=== PATIENT | male | born 1995 | race Two or more races ===

== ENCOUNTER 2023-10-22 13:49 | Inpatient (IN) | payer MEDICARE, MEDICAID ==
[~2023-10-22] VITALS: Ht 175.3 cm; Wt 91.7 kg
[2023-10-22 03:26] VITALS: BP 183/106; PULSE 67; RESP 20; TEMP 97.8; O2SAT 100
[2023-10-22 14:25] LABS: Basophils # (auto) 0.1 10 ^3/uL (0-0.2); Basophils % (auto) 1.2 % (0.0-2.0); Eosinophils # (auto) 0.4 10 ^3/uL (0-0.8); Eosinophils % (auto) 3.5 % (0.0-7.0); Hemoglobin 11.7 g/dL (13.5-17.5); Lymphocytes # (auto) 1.4 10 ^3/uL (0.4-5.4); Mean Corpuscular Hemoglobin 30.9 pg (28.0-32.0); Mean Corpuscular Hgb Conc. 33.5 g/dL (32.0-36.0); Mean Corpuscular Volume 92.3 fL (80.0-100.0); Monocytes # (auto) 0.9 10 ^3/uL (0-1.3); Monocytes % (auto) 8.4 % (0.0-12.0); Neutrophils # (auto) 7.4 10 ^3/uL (1.6-8.6); Neutrophils % (auto) 72.9 % (37.0-80.0); Red Blood Cells 3.79 10^6/uL (4.5-5.90); White Blood Cell 10.2 10^3/uL (4.4-10.8)
[2023-10-22 14:41] LABS: INR 1.04 (0.9-1.15); Partial Thromboplastin Time 25.9 SEC (24.5-34.5)
[2023-10-22 14:47] LABS: Alanine Aminotransferase 18 U/L (7-40); Albumin 4.3 g/dL (3.2-4.8); Alkaline Phosphatase 84 U/L (46-116); Anion Gap 9 (5-15); Aspartate Aminotransferase 12 U/L (13-40); BUN/Creatinine Ratio 2.6 (10.0-20.0); Bilirubin, Total 0.4 mg/dL (0.2-1.0); Blood Urea Nitrogen 35 mg/dL (9-23); Calcium 9.1 mg/dL (8.5-10.1); Carbon Dioxide 25 mmol/L (20-30); Chloride 105 mmol/L (98-107); Glucose 94 mg/dL (74-106); Sodium 139 mmol/L (136-145); Total Protein 6.3 g/dL (5.7-8.2)
[2023-10-22 16:00] VITALS: PULSE 59; RESP 16; O2SAT 95
[2023-10-22] MEDS: PANTOPRAZOLE 80 MG in SODIUM CHL 0.9% 100 ML IV ONE (18:15)
[2023-10-22] MEDS: OCTREOTIDE ACETATE 500 MCG in SODIUM CHL 0.9% 99 ML IV SCH (18:15)
[2023-10-22] MEDS ORDERED: MYCO500T PO (18:45)
[2023-10-22] MEDS ORDERED: NIFE90TA75 PO (18:45)
[2023-10-22] MEDS ORDERED: LOSA-534 PO (18:45)
[2023-10-22] MEDS ORDERED: LABE200T33 PO (18:45)
[2023-10-22] MEDS ORDERED: CALC10TA PO (18:45)
[2023-10-22] MEDS ORDERED: FERR1TAB17 PO (18:45)
[2023-10-22 19:15] VITALS: PULSE 67; RESP 15; O2SAT 97
[2023-10-22] MEDS: PANTOPRAZOLE 40mg/50ML NS AE 50 ML IV ONE (19:15)
[2023-10-22] MEDS: hydrALAZINE HCL 20 MG/ML VL IV PRN (19:44)
[2023-10-22] MEDS: OCTREOTIDE ACETATE 100 MCG in SODIUM CHL 0.9% 50 ML IV ONE (19:55)
[2023-10-22] MEDS: LABETALOL HCL 200 MG TAB PO SCH ×2 (22:13→23:09)
[2023-10-22] MEDS: LOSARTAN POTASSIUM 50 MG TAB PO SCH (22:13)
[2023-10-23] VITALS (11 sets, daily range): BP systolic 127–195; BP diastolic 74–115; PULSE 63–82; RESP 14–20; TEMP 97.8–99.3; O2SAT 98–100
[2023-10-23] MEDS: OCTREOTIDE ACETATE 500 MCG/ML VL ONE (03:06)
[2023-10-23] MEDS ORDERED: ISOS10TA2 PO (04:27)
[2023-10-23 06:08] LABS: Basophils # (auto) 0.2 10 ^3/uL (0-0.2); Basophils % (auto) 2.1 % (0.0-2.0); Eosinophils # (auto) 0.5 10 ^3/uL (0-0.8); Hematocrit 33.8 % (41.0-53.0); Hemoglobin 11.2 g/dL (13.5-17.5); Lymphocytes % (auto) 26.7 % (10.0-50.0); Mean Corpuscular Hemoglobin 30.6 pg (28.0-32.0); Mean Corpuscular Hgb Conc. 33.3 g/dL (32.0-36.0); Mean Corpuscular Volume 91.9 fL (80.0-100.0); Monocytes # (auto) 0.7 10 ^3/uL (0-1.3); Monocytes % (auto) 9.2 % (0.0-12.0); Neutrophils # (auto) 4.1 10 ^3/uL (1.6-8.6); Nucleated Red Blood Cells % 0.1 %; Red Blood Cells 3.67 10^6/uL (4.5-5.90); Red Cell Distribution Width 14.1 % (11.8-14.3); White Blood Cell 7.5 10^3/uL (4.4-10.8)
[2023-10-23 06:33] LABS: Alanine Aminotransferase 17 U/L (7-40); Alkaline Phosphatase 72 U/L (46-116); Anion Gap 11 (5-15); BUN/Creatinine Ratio 2.2 (10.0-20.0); Blood Urea Nitrogen 34 mg/dL (9-23); Calcium 9.1 mg/dL (8.7-10.4); Carbon Dioxide 22 mmol/L (20-30); Chloride 104 mmol/L (98-107); Glucose 136 mg/dL (74-106); Potassium 4.3 mmol/L (3.5-5.1); Sodium 137 mmol/L (136-145)
[2023-10-23 06:35] LABS: Albumin 3.9 g/dL (3.2-4.8); Aspartate Aminotransferase 8 U/L (13-40); Bilirubin, Total 0.5 mg/dL (0.2-1.0); Total Protein 5.9 g/dL (5.7-8.2)
[2023-10-23] MEDS: NIFEdipine ER 30 MG TAB PO SCH (08:39)
[2023-10-23] MEDS: ISOSORBIDE DINITRATE 10 MG TAB PO SCH (11:14)
[2023-10-23 12:56] LABS: Hepatitis B Surface Antigen Negative (Negative)
[2023-10-23 13:17] LABS: Hepatitis A Ab IgM Negative; Hepatitis B Core IgM Negative
[2023-10-23] MEDS: levoFLOXacin 500MG 100 ML IV SCH (13:17)
[2023-10-23 13:18] LABS: Hepatitis C Antibody Negative (Negative)
[2023-10-23 16:46] LABS: Magnesium 2.1 mg/dL (1.6-2.6)
[2023-10-23 16:48] LABS: Phosphorus 6.4 mg/dL (2.4-5.1)
[2023-10-23] MEDS: FERRIC CITRATE PO SCH (18:00)
[2023-10-23] MEDS: [UNRECOGNIZED DRUG - OTHER] PO SCH (18:00)
[2023-10-23] MEDS: CALCIUM ACETATE 667 MG CAP PO SCH (18:00)
[2023-10-23] MEDS: metroNIDAZOLE 500MG/100ML 100 ML IV SCH (19:04)
[2023-10-23 19:48] LABS: Erythrocyte Sedimentation Rate 7 mm/hr (0-20)
[2023-10-23] MEDS: MYCOPHENOLATE 500 MG TAB PO SCH (22:04)
[2023-10-24 01:00] VITALS: BP 135/77; PULSE 87; RESP 17; TEMP 98.5; O2SAT 98
[2023-10-24 07:37] LABS: Basophils # (auto) 0.1 10 ^3/uL (0-0.2); Basophils % (auto) 1.7 % (0.0-2.0); Eosinophils # (auto) 0.3 10 ^3/uL (0-0.8); Eosinophils % (auto) 5.6 % (0.0-7.0); Hematocrit 33.3 % (41.0-53.0); Hemoglobin 11.3 g/dL (13.5-17.5); Lymphocytes # (auto) 1.4 10 ^3/uL (0.4-5.4); Mean Corpuscular Hemoglobin 30.8 pg (28.0-32.0); Mean Corpuscular Hgb Conc. 33.8 g/dL (32.0-36.0); Mean Corpuscular Volume 91.2 fL (80.0-100.0); Monocytes # (auto) 0.5 10 ^3/uL (0-1.3); Monocytes % (auto) 8.9 % (0.0-12.0); Neutrophils # (auto) 2.9 10 ^3/uL (1.6-8.6); Neutrophils % (auto) 56.8 % (37.0-80.0); Red Blood Cells 3.65 10^6/uL (4.5-5.90); White Blood Cell 5.1 10^3/uL (4.4-10.8)
[2023-10-24 07:48] LABS: Chloride 100 mmol/L (98-107); Potassium 3.9 mmol/L (3.5-5.1); Sodium 137 mmol/L (136-145)
[2023-10-24 07:49] LABS: Anion Gap 10 (5-15); Carbon Dioxide 27 mmol/L (20-30)
[2023-10-24 07:50] LABS: Calcium 8.7 mg/dL (8.5-10.1)
[2023-10-24 07:54] LABS: BUN/Creatinine Ratio 2.7 (10.0-20.0); Blood Urea Nitrogen 34 mg/dL (9-23); Glucose 110 mg/dL (74-106)
[2023-10-24 07:57] LABS: Phosphorus 6.6 mg/dL (2.4-5.1)
[2023-10-24 08:00] VITALS: PULSE 77; RESP 18; O2SAT 100
[2023-10-24 09:00] VITALS: BP 136/75; PULSE 77; RESP 18; TEMP 97.6; O2SAT 98
[2023-10-24 13:00] VITALS: BP 140/82; PULSE 76; RESP 20; TEMP 97.5; O2SAT 100
[2023-10-24] MEDS ORDERED: levoFLOXacin 250MG 50 ML IV SCH (13:00)
== END 2023-10-24 14:23 | disposition left against medical advice (07) | DRG 371 ==
LOC: ER 13:49 → OVERFLOW 18:27 → WEST WING 23:32
PROVIDERS: ADMIT Registered Nurse; ATTEND Internal Medicine
PROC: 5A1D70Z Performance of Urinary Filtration, Intermittent, Less than 6 Hours Per Day (ICD-10-PCS; principal; 2023-10-23)
DX: A04.72 Enterocolitis due to Clostridium difficile, not specified as recurrent (principal); N18.6 End stage renal disease; K92.2 Gastrointestinal hemorrhage, unspecified; I12.0 Hypertensive chronic kidney disease with stage 5 chronic kidney disease or end stage renal disease; Z53.29 Procedure and treatment not carried out because of patient's decision for other reasons; I16.0 Hypertensive urgency; R16.2 Hepatomegaly with splenomegaly, not elsewhere classified; Z99.2 Dependence on renal dialysis; Z79.60 Long term (current) use of unspecified immunomodulators and immunosuppressants; Z88.0 Allergy status to penicillin; Z87.891 Personal history of nicotine dependence; Z83.3 Family history of diabetes mellitus
CPT/HCPCS: 36415; 74176; 80048; 80053; 80074; 82270; 82378; 83605; 83690; 83735; 84100; 85025; 85048; 85610; 85652; 85730; 86141; 87045; 87427; 87493; 90935; G0378; J1956; J3490; J7517

== ENCOUNTER 2023-12-23 16:15 | Inpatient (IN) | payer MEDICARE, MEDICAID ==
[~2023-12-23] VITALS: Ht 175.3 cm; Wt 90.7 kg
[~2023-12-23 16:15] MED LIST: CALC10TA PO; FERR1TAB17 PO; ISOS10TA2 PO; LABE200T33 PO; LOSA-534 PO; MYCO500T PO; NIFE90TA75 PO
[2023-12-23 17:08] LABS: Basophils # (auto) 0.1 10 ^3/uL (0-0.2); Basophils % (auto) 1.8 % (0.0-2.0); Eosinophils # (auto) 0.1 10 ^3/uL (0-0.8); Eosinophils % (auto) 1.3 % (0.0-7.0); Hematocrit 36.6 % (41.0-53.0); Hemoglobin 12.5 g/dL (13.5-17.5); Lymphocytes # (auto) 1.7 10 ^3/uL (0.4-5.4); Lymphocytes % (auto) 22.8 % (10.0-50.0); Mean Corpuscular Hemoglobin 32.9 pg (28.0-32.0); Mean Corpuscular Hgb Conc. 34.3 g/dL (32.0-36.0); Mean Corpuscular Volume 96.1 fL (80.0-100.0); Monocytes # (auto) 0.6 10 ^3/uL (0-1.3); Monocytes % (auto) 7.6 % (0.0-12.0); Neutrophils # (auto) 5.1 10 ^3/uL (1.6-8.6); Neutrophils % (auto) 66.5 % (37.0-80.0); Platelet Count (auto) 347 10^3/uL (140-450); Red Blood Cells 3.81 10^6/uL (4.5-5.90); Red Cell Distribution Width 15.9 % (11.8-14.3); White Blood Cell 7.7 10^3/uL (4.4-10.8)
[2023-12-23 17:26] LABS: Alanine Aminotransferase 34 U/L (7-40); Albumin 5.6 g/dL (3.2-4.8); Alkaline Phosphatase 86 U/L (46-116); Anion Gap 25 (5-15); Aspartate Aminotransferase < 8 U/L (13-40); BUN/Creatinine Ratio 4.9 (10.0-20.0); Bilirubin, Total 0.8 mg/dL (0.2-1.0); Calcium 10.4 mg/dL (8.7-10.4); Carbon Dioxide 10 mmol/L (20-30); Chloride 95 mmol/L (98-107); Glucose 92 mg/dL (74-106); Lipase 64 U/L (12-53); Sodium 130 mmol/L (136-145); Total Protein 8.4 g/dL (5.7-8.2)
[2023-12-23] MEDS: SODIUM CHLORIDE 0.9% 1,000 ML IV ONE (17:33)
[2023-12-23 17:34] LABS: Blood Urea Nitrogen 88 mg/dL (9-23); Potassium 5.9 mmol/L (3.5-5.1)
[2023-12-23] MEDS: MORPHINE SULFATE 4 MG/ML SYR/VIAL IV ONE (17:51)
[2023-12-23] MEDS: ONDANSETRON HCL 4 MG/2 ML VIAL IV ONE (17:51)
[2023-12-23] MEDS ORDERED: VANCOMYCIN PER PHARMACY 0 MG IV SCH (18:00)
[2023-12-23] MEDS ORDERED: VANCOMYCIN 1GM/200ML 200 ML IV ONE (18:15)
[2023-12-23] MEDS: ALBUTEROL SULF 2.5 MG/0.5ML(0.5%) NEB SOLN NEB ONE ×2 (18:16→23:30)
[2023-12-23] MEDS: CALCIUM GLUC 1,000mg/50ml-NS 50 ML IV ONE (18:25)
[2023-12-23] MEDS: SODIUM ZIRCONIUM CYCL 10 GM PAK PO ONE ×2 (18:25→23:48)
[2023-12-23 19:30] VITALS: PULSE 63; RESP 14
[2023-12-23] MEDS: VANCOMYCIN HCL 125 MG CAP PO ONE (19:41)
[2023-12-23 21:30] LABS: Alanine Aminotransferase 30 U/L (7-40); Albumin 5.3 g/dL (3.2-4.8); Alkaline Phosphatase 82 U/L (46-116); Anion Gap 23 (5-15); Aspartate Aminotransferase < 8 U/L (13-40); BUN/Creatinine Ratio 4.6 (10.0-20.0); Calcium 9.9 mg/dL (8.7-10.4); Carbon Dioxide 10 mmol/L (20-30); Chloride 95 mmol/L (98-107); Glucose 75 mg/dL (74-106); Sodium 128 mmol/L (136-145)
[2023-12-23 21:31] LABS: Bilirubin, Total 0.6 mg/dL (0.2-1.0)
[2023-12-23] MEDS ORDERED: HYDROmorphone HCL 2 MG/ML VL/or syr IV PRN (22:00)
[2023-12-23] MEDS: MYCOPHENOLATE 500 MG TAB PO SCH (22:00)
[2023-12-23] MEDS ORDERED: ACETAMINOPHEN 325 MG TAB PO PRN (22:00)
[2023-12-23] MEDS ORDERED: HYDROcodone-ACET 5/325MG TAB PO PRN (22:00)
[2023-12-23] MEDS ORDERED: ONDANSETRON HCL 4 MG/2 ML VIAL IV PRN (22:00)
[2023-12-23] MEDS: SODIUM CHLOR 0.9% PF (SALINE LOCK) 10ML VIAL/SYR IV SCH (22:00)
[2023-12-23 22:12] LABS: Blood Urea Nitrogen 82 mg/dL (9-23); Potassium 7.9 mmol/L (3.5-5.1)
[2023-12-23] MEDS: SODIUM BICARB 8.4% 50Meq/50ml SYR Vial IV ONE (23:46)
[2023-12-23] MEDS: VANCOMYCIN HCL 125 MG CAP PO SCH (23:47)
[2023-12-23] MEDS: LABETALOL HCL 200 MG TAB PO SCH (23:48)
[2023-12-23] MEDS: FLORASTOR (S. BOULARDII) 250 MG CAP PO SCH (23:48)
[2023-12-23] MEDS: DEXTROSE (50%) 50ML SYRG IV ONE (23:49)
[2023-12-24] MEDS: CALCIUM GLUC 1,000mg/50ml-NS 50 ML IV SCH (00:21)
[2023-12-24] MEDS: D5W 5% 500 ML IV SCH (00:30)
[2023-12-24] MEDS: InsuLIN REG 1unit/0.01ml Soln (100units/ml) IV ONE (01:50)
[2023-12-24 04:24] LABS: Basophils # (auto) 0.1 10 ^3/uL (0-0.2); Eosinophils # (auto) 0.1 10 ^3/uL (0-0.8); Hematocrit 34.5 % (41.0-53.0); Hemoglobin 12.1 g/dL (13.5-17.5); Lymphocytes # (auto) 1.8 10 ^3/uL (0.4-5.4); Lymphocytes % (auto) 29.4 % (10.0-50.0); Mean Corpuscular Hemoglobin 33.5 pg (28.0-32.0); Mean Corpuscular Hgb Conc. 35.2 g/dL (32.0-36.0); Mean Corpuscular Volume 95.2 fL (80.0-100.0); Monocytes # (auto) 0.9 10 ^3/uL (0-1.3); Monocytes % (auto) 13.7 % (0.0-12.0); Neutrophils # (auto) 3.4 10 ^3/uL (1.6-8.6); Neutrophils % (auto) 54.9 % (37.0-80.0); Nucleated Red Blood Cells % 0.1 %; Platelet Count (auto) 226 10^3/uL (140-450); Red Blood Cells 3.62 10^6/uL (4.5-5.90); Red Cell Distribution Width 15.4 % (11.8-14.3); White Blood Cell 6.2 10^3/uL (4.4-10.8)
[2023-12-24 04:50] LABS: Alanine Aminotransferase 28 U/L (7-40); Albumin 5.2 g/dL (3.2-4.8); Alkaline Phosphatase 80 U/L (46-116); Anion Gap 24 (5-15); Aspartate Aminotransferase < 8 U/L (13-40); Bilirubin, Total 0.7 mg/dL (0.2-1.0); Calcium 10.7 mg/dL (8.7-10.4); Carbon Dioxide 21 mmol/L (20-30); Chloride 92 mmol/L (98-107); Glucose 70 mg/dL (74-106); Potassium 4.6 mmol/L (3.5-5.1); Sodium 137 mmol/L (136-145); Total Protein 7.8 g/dL (5.7-8.2)
[2023-12-24 04:53] LABS: Blood Urea Nitrogen 97 mg/dL (9-23)
[2023-12-24 07:40] VITALS: PULSE 75; RESP 13
[2023-12-24] MEDS: CALCIUM ACETATE 667 MG CAP PO SCH ×2 (08:43→13:09)
[2023-12-24] MEDS: FERRIC CITRATE 630 MG PO SCH ×2 (08:43→13:09)
[2023-12-24] MEDS ORDERED: MYCOPHENOLATE 500 MG TAB PO SCH (10:00)
[2023-12-24] MEDS: ISOSORBIDE DINITRATE 10 MG TAB PO SCH (10:45)
[2023-12-24] MEDS: PANTOPRAZOLE 40 MG/10 ML VIAL INJ IV SCH (10:45)
[2023-12-24] MEDS: NIFEdipine ER 30 MG TAB PO SCH (13:43)
[2023-12-24 14:03] VITALS: BP 134/85; PULSE 79; RESP 16; TEMP 97.8; O2SAT 98
[2023-12-24 14:10] VITALS: PULSE 77; RESP 18; O2SAT 99
[2023-12-24 17:00] VITALS: BP 128/73; PULSE 76; RESP 14; TEMP 98.5; O2SAT 98
[2023-12-24 20:00] VITALS: PULSE 67; PULSE 82; RESP 17; O2SAT 98
[2023-12-24 21:00] VITALS: BP 106/63; PULSE 82; RESP 17; TEMP 97.4; O2SAT 98
[2023-12-25] VITALS (8 sets, daily range): BP systolic 118–154; BP diastolic 67–92; PULSE 64–122; RESP 12–20; TEMP 97.5–98.3; O2SAT 98–100
[2023-12-25 06:03] LABS: Basophils # (auto) 0.1 10 ^3/uL (0-0.2); Basophils % (auto) 1.1 % (0.0-2.0); Eosinophils # (auto) 0.1 10 ^3/uL (0-0.8); Eosinophils % (auto) 1.2 % (0.0-7.0); Hematocrit 32.4 % (41.0-53.0); Hemoglobin 11.2 g/dL (13.5-17.5); Lymphocytes # (auto) 1.7 10 ^3/uL (0.4-5.4); Lymphocytes % (auto) 32.1 % (10.0-50.0); Mean Corpuscular Hemoglobin 33.8 pg (28.0-32.0); Mean Corpuscular Hgb Conc. 34.6 g/dL (32.0-36.0); Mean Corpuscular Volume 97.6 fL (80.0-100.0); Monocytes # (auto) 0.7 10 ^3/uL (0-1.3); Monocytes % (auto) 13.3 % (0.0-12.0); Neutrophils # (auto) 2.7 10 ^3/uL (1.6-8.6); Neutrophils % (auto) 52.3 % (37.0-80.0); Nucleated Red Blood Cells % 0.1 %; Platelet Count (auto) 221 10^3/uL (140-450); Red Blood Cells 3.32 10^6/uL (4.5-5.90); Red Cell Distribution Width 15.7 % (11.8-14.3); White Blood Cell 5.2 10^3/uL (4.4-10.8)
[2023-12-25 06:51] LABS: Alanine Aminotransferase 22 U/L (7-40); Albumin 4.7 g/dL (3.2-4.8); Alkaline Phosphatase 70 U/L (46-116); Anion Gap 17 (5-15); BUN/Creatinine Ratio 4.4 (10.0-20.0); Calcium 9.6 mg/dL (8.7-10.4); Carbon Dioxide 22 mmol/L (20-30); Chloride 95 mmol/L (98-107); Glucose 92 mg/dL (74-106); Magnesium 2.3 mg/dL (1.6-2.6); Potassium 4.2 mmol/L (3.5-5.1); Sodium 134 mmol/L (136-145)
[2023-12-25 06:52] LABS: Bilirubin, Total 0.7 mg/dL (0.2-1.0); Total Protein 7.2 g/dL (5.7-8.2)
[2023-12-25 07:33] LABS: Blood Urea Nitrogen 68 mg/dL (9-23)
[2023-12-25 07:37] LABS: Aspartate Aminotransferase < 8 U/L (13-40)
[2023-12-25] MEDS ORDERED: SODIUM CHL 0.9% 1000 ML BAG XX ONE (09:00)
[2023-12-26] VITALS (7 sets, daily range): BP systolic 116–144; BP diastolic 71–82; PULSE 69–92; RESP 16–19; TEMP 97.2–98.3; O2SAT 98–100
[2023-12-26 06:22] LABS: Basophils # (auto) 0.1 10 ^3/uL (0-0.2); Basophils % (auto) 1.6 % (0.0-2.0); Eosinophils # (auto) 0.1 10 ^3/uL (0-0.8); Hemoglobin 10.7 g/dL (13.5-17.5); Nucleated Red Blood Cells % 0.1 %; White Blood Cell 5.2 10^3/uL (4.4-10.8)
[2023-12-26 06:27] LABS: Eosinophils % (auto) 1.7 % (0.0-7.0); Hematocrit 29.7 % (41.0-53.0); Lymphocytes % (auto) 38.3 % (10.0-50.0); Mean Corpuscular Hemoglobin 34.7 pg (28.0-32.0); Mean Corpuscular Hgb Conc. 36.1 g/dL (32.0-36.0); Mean Corpuscular Volume 96.2 fL (80.0-100.0); Monocytes # (auto) 0.8 10 ^3/uL (0-1.3); Monocytes % (auto) 14.9 % (0.0-12.0); Neutrophils # (auto) 2.2 10 ^3/uL (1.6-8.6); Neutrophils % (auto) 43.5 % (37.0-80.0); Platelet Count (auto) 207 10^3/uL (140-450); Red Blood Cells 3.09 10^6/uL (4.5-5.90); Red Cell Distribution Width 15.4 % (11.8-14.3)
[2023-12-26 07:41] LABS: Chloride 97 mmol/L (98-107); Sodium 136 mmol/L (136-145)
[2023-12-26 07:43] LABS: Anion Gap 13 (5-15); Carbon Dioxide 26 mmol/L (20-30)
[2023-12-26 07:49] LABS: Alkaline Phosphatase 68 U/L (46-116); BUN/Creatinine Ratio 3.8 (10.0-20.0); Glucose 91 mg/dL (74-106); Magnesium 2.3 mg/dL (1.6-2.6)
[2023-12-26 07:51] LABS: Alanine Aminotransferase 22 U/L (7-40); Albumin 4.7 g/dL (3.2-4.8); Aspartate Aminotransferase < 8 U/L (13-40); Bilirubin, Total 0.8 mg/dL (0.2-1.0); Total Protein 7.2 g/dL (5.7-8.2)
[2023-12-26 07:52] LABS: Blood Urea Nitrogen 47 mg/dL (9-23)
[2023-12-26] MEDS: DICYCLOMINE HCL 10 MG CAP PO ONE (09:23)
[2023-12-26] MEDS: POLYETHYLENE GLYCOL 17 GM PWDR PO ONE (09:24)
[2023-12-26] MEDS: LACTULOSE 20Gm/30ML SOLN PO ONE (12:10)
[2023-12-26] MEDS: DOCUSATE SOD 100 MG CAP PO PRN (13:46)
[2023-12-27] MEDS ORDERED: POLYETHYLENE GLYCOL 17 GM PWDR PO SCH (10:00)
== END 2023-12-26 17:50 | disposition home or self-care (01) | DRG 640 ==
LOC: ER 16:15 → TELE 21:54 → TELE-EAST 12-24 14:10
PROVIDERS: ADMIT Internal Medicine; ATTEND Nurse Practitioner Acute Care
PROC: 5A1D70Z Performance of Urinary Filtration, Intermittent, Less than 6 Hours Per Day (ICD-10-PCS; principal; 2023-12-24)
PROC: 5A1D70Z Performance of Urinary Filtration, Intermittent, Less than 6 Hours Per Day (ICD-10-PCS; 2023-12-25)
DX: E87.5 Hyperkalemia (principal); N18.6 End stage renal disease; A09 Infectious gastroenteritis and colitis, unspecified; I12.0 Hypertensive chronic kidney disease with stage 5 chronic kidney disease or end stage renal disease; K59.00 Constipation, unspecified; Z99.2 Dependence on renal dialysis; Z88.0 Allergy status to penicillin; Z83.3 Family history of diabetes mellitus
CPT/HCPCS: 36415; 74018; 74176; 76700; 80053; 82962; 83605; 83690; 83735; 85025; 87081; 90935; 93005; 94640; 96361; 96365; 96366; 96375; G0378; J1815; J2405; J2470; J7517